=== PATIENT | male | born 1960 | race Caucasian/White ===

== ENCOUNTER → 2020-10-19 | Outpatient (CLI) | payer OTHER | LOC: KOH-I 11:30 | DX: R91.1 Solitary pulmonary nodule (principal); R91.8 Other nonspecific abnormal finding of lung field | CPT/HCPCS: 71250 ==

== ENCOUNTER → 2021-01-04 | Outpatient (CLI) | payer OTHER | LOC: KOH-I 09:37 | DX: B19.20 Unspecified viral hepatitis C without hepatic coma (principal); K82.8 Other specified diseases of gallbladder | CPT/HCPCS: 76705 ==

== ENCOUNTER → 2021-04-15 | Outpatient (CLI) | payer OTHER | LOC: KOH-I 09:30 | DX: R91.1 Solitary pulmonary nodule (principal) | CPT/HCPCS: 71250 ==

== ENCOUNTER 2021-10-23 09:53 | Emergency (ER) | payer OTHER ==
[2021-10-23] MEDS ORDERED: KENALOG 0.5% CR15 GM EXT (10:22)
== END 2021-10-23 10:28 | disposition home or self-care (01) ==
LOC: ER1 09:53
DX: S40.861A Insect bite (nonvenomous) of right upper arm, initial encounter (principal); F17.210 Nicotine dependence, cigarettes, uncomplicated; I10 Essential (primary) hypertension; E78.5 Hyperlipidemia, unspecified; J44.9 Chronic obstructive pulmonary disease, unspecified; W57.XXXA Bitten or stung by nonvenomous insect and other nonvenomous arthropods, initial encounter
CPT/HCPCS: 99281

== ENCOUNTER → 2021-11-08 | Outpatient (CLI) | payer OTHER ==
[~2021-11-08] MED LIST: KENALOG 0.5% CR15 GM EXT
== END ==
LOC: KOH-I 10-18 13:00
DX: R91.1 Solitary pulmonary nodule (principal)
CPT/HCPCS: 71250

== ENCOUNTER 2022-06-03 19:35 | Emergency (ER) | payer OTHER | END 2022-06-04 06:50 | disposition home or self-care (01) | LOC: ER1 19:35 | DX: F10.129 Alcohol abuse with intoxication, unspecified (principal); S01.81XA Laceration without foreign body of other part of head, initial encounter; W19.XXXA Unspecified fall, initial encounter; Z23 Encounter for immunization | CPT/HCPCS: 12011; 70450; 72125; 90471; 90715; 94640; 96372; 99284; J1200; J1630 ==